=== PATIENT | female | born 1985 | race Caucasian/White ===

== ENCOUNTER 2019-12-13 10:45 | Inpatient (IN) | payer OTHER ==
[~2019-12-13] VITALS: Ht 175.3 cm; Wt 71.2 kg
[2019-12-13] MEDS ORDERED: CLARITIN10 M2 PO (16:05)
[2019-12-13] MEDS ORDERED: PROAIR HFA8.5 GM IH (16:05)
[2019-12-13] MEDS ORDERED: SINGULAIR10 MG PO (16:05)
[2019-12-13] MEDS ORDERED: FLUTICASONE-SA1 EAC5 (16:06)
== END 2019-12-17 11:11 | disposition home or self-care (01) | DRG 627 ==
LOC: ADM 10:45 → EDSTATUS 10:45 → O/R 12-16 06:38 → SURH 12-16 10:45
PROVIDERS: ADMIT Surgery; ATTEND Surgery
PROC: 0GTK0ZZ Resection of Thyroid Gland, Open Approach (ICD-10-PCS; principal; 2019-12-16 08:00)
DX: E04.8 Other specified nontoxic goiter (principal)